=== PATIENT | female | born 1965 | race American Indian/Alaskan Native ===

== ENCOUNTER 2018-03-09 08:55 | Emergency (ER) | payer OTHER ==
[2018-03-09 09:08] VITALS: BP 134/78; PULSE 63; RESP 16; TEMP 97.5; O2SAT 97
--- NOTE | 2018-03-09 09:14 | C.PDOC ---
History Of Present Illness 52yo female, comes to ER for evaluation of a bilster on her lower legs, present for the last several days. Patient states this happens every summer when she gets bit by a mosquito. Patient states her legs are itchy and some of the blisters have "popped". She denies any fever, chills, or joint pain. Time Seen by Provider: 03/09/18 09:01 Chief Complaint (Nursing): Abnormal Skin Integrity History Per: Patient History/Exam Limitations: no limitations Onset/Duration Of Symptoms: Days Current Symptoms Are (Timing): Still Present Location Of Injury: Anterior: Leg Quality Of Symptoms: Itching Additional History Per: Patient Past Medical History Reviewed: Historical Data, Nursing Documentation, Vital Signs Vital Signs: Last Vital Signs Temp 97.5 F L 03/09/18 09:08 Pulse 63 03/09/18 09:08 Resp 16 03/09/18 09:08 BP 134/78 03/09/18 09:08 Pulse Ox 97 03/09/18 09:17 - Medical History PMH: No Chronic Diseases Surgical History: No Surg Hx Family History: States: Unknown Family Hx - Social History Hx Alcohol Use: No Hx Substance Use: No - Immunization History Hx Tetanus Toxoid Vaccination: Yes Hx Influenza Vaccination: No Hx Pneumococcal Vaccination: No Review Of Systems Constitutional: Negative for: Fever, Chills Musculoskeletal: Negative for: Other (joint pain) Skin: Positive for: Other (blister on left lower extremity) Physical Exam - Physical Exam Appears: Non-toxic, No Acute Distress Skin: Warm, Dry, Other (1cm blister noted on left lower chin with clear fluid. Scattered mosquito bites noted to lower extremity; no vesicles, no palm or sole involvement. no erythema or signs of cellulitis noted.) Head: Normacephalic Eye(s): bilateral: Normal Inspection Neck: Supple Chest: Symmetrical Cardiovascular: Rhythm Regular Respiratory: Normal Breath Sounds Extremity: Normal ROM Neurological/Psych: Oriented x3 ED Course And Treatment O2 Sat by Pulse Oximetry: 97 (RA) Pulse Ox Interpretation: Normal Progress Note: Patient given Benadryl and Prednisone in ER. On reevaluation, patient reports feeling much better. She was instructed to not pop her blisters and to take the medications as prescribed; informed to follow up with her PMD in 2-3 days. Disposition Counseled Patient/Family Regarding: Diagnosis, Need For Followup, Rx Given - Disposition Referrals: [facility] [Outside] Disposition: HOME/ ROUTINE Disposition Time: 09:15 Condition: STABLE Additional Instructions: FOLLOW UP WITH YOUR DOCTOR/CLINIC IN 1-2 DAYS USE MEDICATIONS DIRECTED RETURN TO ER IF SYMPTOMS WORSEN Prescriptions: DiphenhydrAMINE [Benadryl] 25 mg PO Q6 PRN #20 cap PRN Reason: Itching / Pruritus predniSONE [predniSONE Tab] 40 mg PO DAILY #6 tab Instructions: Insect Bites and Stings (DC) Forms: [employer] (Belizean) Print Language: MAURITIAN - Clinical Impression Clinical Impression: Mosquito bite - Scribe Statement The provider has reviewed the documentation as recorded by the Marlon Hahn Provider Attestation: All medical record entries made by the Marlon were at my direction and personally dictated by me. I have reviewed the chart and agree that the record accurately reflects my personal performance of the history, physical exam, medical decision making, and the department course for this patient. I have also personally directed, reviewed, and agree with the discharge instructions and disposition.
== END 2018-03-09 09:33 | disposition home or self-care (01) ==
LOC: C.ER 08:55
DX: S80.862A Insect bite (nonvenomous), left lower leg, initial encounter (principal); S80.861A Insect bite (nonvenomous), right lower leg, initial encounter; S00.86XA Insect bite (nonvenomous) of other part of head, initial encounter; W57.XXXA Bitten or stung by nonvenomous insect and other nonvenomous arthropods, initial encounter; Y92.89 Other specified places as the place of occurrence of the external cause